=== PATIENT | male | born 1995 | race Caucasian/White ===

== ENCOUNTER 2018-01-10 16:51 | Emergency (ER) | payer SELFPAY ==
[~2018-01-10] VITALS: Ht 177.8 cm; Wt 116.4 kg
[2018-01-10 16:53] VITALS: TEMP 98
[2018-01-10] MEDS ORDERED: ANTIVERT 12.512.5 MG PO (18:11)
[2018-01-10 18:21] VITALS: BP 120/73; PULSE 82
== END 2018-01-10 18:24 | disposition home or self-care (01) ==
LOC: COL.ER 16:51
DX: S09.90XA Unspecified injury of head, initial encounter (principal); G43.909 Migraine, unspecified, not intractable, without status migrainosus; K21.9 Gastro-esophageal reflux disease without esophagitis; W22.01XA Walked into wall, initial encounter; Y93.01 Activity, walking, marching and hiking; Y92.89 Other specified places as the place of occurrence of the external cause
CPT/HCPCS: J1885

== ENCOUNTER 2018-09-10 11:15 | Emergency (ER) | payer SELFPAY ==
[~2018-09-10] VITALS: Ht 182.9 cm; Wt 113.6 kg
[~2018-09-10 11:15] MED LIST: ANTIVERT 12.512.5 MG PO
[2018-09-10 11:17] VITALS: TEMP 98.9
[2018-09-10 13:56] LABS: BASO % 0.4 % (0.0-2.0); EOS % 0.5 % (0-4.0); GRAN % 70.2 % (42.2-75.2); HEMATOCRIT 48.3 % (42.0-52.0); HEMOGLOBIN 15.9 g/dl (13.5-18.0); LYMPH # 1.8 (1.2-3.4); LYMPH % 20.9 % (20.0-51.0); MEAN CELL VOLUME 87 fl (80.0-100.0); MEAN CORPUSCULAR HEMOGLOBIN 29 pg (27.0-31.0); MEAN CORPUSCULAR HGB CONC 33 g/dl (33.0-37.0); MEAN PLATELET VOLUME 9.7 fl (7.4-10.4); MONO # 0.7 (0.1-0.6); MONO % 7.8 % (1.7-9.3); PLATELET COUNT 335 K/mm3 (130-400); RED BLOOD COUNT 5.58 M/mm3 (4.20-5.60); REDCELL DISTRIBUTION WIDTH-CV 12.9 % (11.5-14.5)
[2018-09-10 14:01] LABS: COLLECTION METHOD CLEAN CATCH
[2018-09-10 14:12] LABS: MUCOUS Present /lpf; PH 7 (5-8); SQUAMOUS EPITHELIAL None Seen /hpf; URINE APPEARANCE Clear; URINE BACTERIA None Seen /hpf; URINE BILIRUBIN Negative (NEGATIVE); URINE BLOOD Negative (NEGATIVE); URINE COLOR Yellow; URINE GLUCOSE Negative (NEGATIVE); URINE KETONE Negative (NEGATIVE); URINE LEUKOCYTE ESTERASE Negative (NEGATIVE); URINE NITRATE Negative (NEGATIVE); URINE PROTEIN(semi-quant) Negative (NEGATIVE); URINE RBC 0-2 /hpf; URINE UROBILINOGEN Negative (NEGATIVE)
[2018-09-10 14:13] LABS: ALANINE AMINOTRANSFERASE 22 U/L (21-72); ALBUMIN 4.2 gm/dL (3.5-5.0); ALKALINE PHOSPHATASE 78 U/L (50-136); ANION GAP 8 mmol/L (7-16); AST,SGOT 27 U/L (15-37); BILIRUBIN,TOTAL 0.7 mg/dL (0.0-1.0); BLOOD UREA NITROGEN 12 mg/dL (9-20); CALCIUM 9.4 mg/dL (8.4-10.2); CARBON DIOXIDE 29 mmol/L (22-30); CHLORIDE 105 mmol/L (98-107); CREATININE, serum 0.78 mg/dL (0.66-1.25); GLUCOSE 99 mg/dL (74-106); POTASSIUM 4.3 mmol/L (3.4-5.0); SODIUM 141 mmol/L (137-145); TOTAL PROTEIN 7.5 gm/dL (6.4-8.2)
[2018-09-10 14:14] LABS: ACETAMINOPHEN < 10 ug/mL (10-30); ALCOHOL(ethanol),MEDICAL < 10 mg/dL; SALICYLATE < 1.0 mg/dL
[2018-09-10 14:31] LABS: TRICYCLIC ANTIDEPRESS URINE NEGATIVE
[2018-09-10] MEDS ORDERED: NORCO 325 MG-51 TAB PO (15:45)
[2018-09-10] MEDS ORDERED: ZOFRAN 4MG T4 MG/TAB PO (15:46)
[2018-09-10 15:57] VITALS: BP 118/72; PULSE 92
== END 2018-09-10 15:59 | disposition home or self-care (01) ==
LOC: COL.ER 11:15
PROVIDERS: Physician Assistant
DX: G43.909 Migraine, unspecified, not intractable, without status migrainosus (principal); F32.9 Major depressive disorder, single episode, unspecified; F17.210 Nicotine dependence, cigarettes, uncomplicated; Z90.49 Acquired absence of other specified parts of digestive tract
CPT/HCPCS: J1885; J2550

== ENCOUNTER 2020-10-22 23:11 | Emergency (ER) | payer SELFPAY ==
[~2020-10-22] VITALS: Ht 182.9 cm; Wt 130.0 kg
[~2020-10-22 23:11] MED LIST changes: +NORCO 325 MG-51 TAB PO; +ZOFRAN 4MG T4 MG/TAB PO
[2020-10-22 23:23] VITALS: BP 140/94; TEMP 99
[2020-10-23 00:06] VITALS: PULSE 86
== END 2020-10-23 00:06 | disposition home or self-care (01) ==
LOC: COL.ER 23:11
DX: J20.9 Acute bronchitis, unspecified (principal); Z86.16 Personal history of COVID-19; Z88.0 Allergy status to penicillin; Z88.8 Allergy status to other drugs, medicaments and biological substances

== ENCOUNTER 2024-03-31 16:15 | Emergency (ER) | payer SELFPAY ==
[~2024-03-31] VITALS: Ht 180.3 cm; Wt 125.0 kg
[2024-03-31 18:26] LABS: COLLECTION METHOD CLEAN CATCH
[2024-03-31] MEDS ORDERED: NS 1,000 ML IV ONE (18:30)
[2024-03-31 18:31] LABS: BASO % 0.2 % (0.0-2.0); EOS # 0.1 K/mm3 (0.0-0.7); EOS % 0.6 % (0.0-4.0); GRAN # 8.9 K/mm3 (1.4-6.5); GRAN % 71.4 % (42.2-75.2); HEMATOCRIT 48.4 % (42.0-52.0); HEMOGLOBIN 15.9 g/dl (13.5-18.0); LYMPH # 2.4 K/mm3 (1.2-3.4); LYMPH % 19.6 % (20.0-51.0); MEAN CELL VOLUME 86 fl (80.0-100.0); MEAN CORPUSCULAR HEMOGLOBIN 28 pg (27-31); MEAN CORPUSCULAR HGB CONC 33 g/dl (33.0-37.0); MEAN PLATELET VOLUME 10.1 fl (7.4-10.4); PLATELET COUNT 332 K/mm3 (130-400); RED BLOOD COUNT 5.62 M/mm3 (4.20-5.60); REDCELL DISTRIBUTION WIDTH-CV 13.2 % (11.5-14.5)
[2024-03-31 18:33] LABS: URINE APPEARANCE CLEAR (CLEAR/HAZY); URINE BLOOD NEGATIVE (NEGATIVE); URINE COLOR YELLOW (YELLOW); URINE GLUCOSE NEGATIVE (NEGATIVE); URINE KETONE TRACE (NEGATIVE); URINE NITRATE NEGATIVE (NEGATIVE); URINE PROTEIN(semi-quant) NEGATIVE (NEGATIVE); URINE UROBILINOGEN 0.2 E.U/dL (0.2-1.0)
[2024-03-31 18:35] LABS: INR 1.2 (0.8-3.0); PROTHROMBIN TIME 13.1 SECONDS (9.7-12.8)
[2024-03-31 18:44] LABS: ALBUMIN 4.2 g/dL (3.5-5.0); BILIRUBIN,TOTAL 1.3 mg/dL (0.2-1.2); CALCIUM 9.6 mg/dL (8.4-10.2); CREATININE, serum 0.86 mg/dL (0.72-1.25); POTASSIUM 3.7 mEq/L (3.5-4.5); TOTAL PROTEIN 7.3 g/dl (6.2-8.1)
[2024-03-31] MEDS ORDERED: Iohexol 300 - 100 ML VIAL IV ONE (18:57)
[2024-03-31] MEDS ORDERED: NS 100 ML IV ONE (18:57)
[2024-03-31] MEDS ORDERED: XANAX .25M0.25 MG/TA PO (19:49)
[2024-03-31 20:37] VITALS: BP 120/77; PULSE 80; TEMP 98
== END 2024-03-31 20:37 | disposition home or self-care (01) ==
LOC: COL.ER 16:15
PROVIDERS: Emergency Medicine
DX: F41.9 Anxiety disorder, unspecified (principal); R19.7 Diarrhea, unspecified
CPT/HCPCS: J7030; Q9967